=== PATIENT | female | born 2000 | race Caucasian/White ===

== ENCOUNTER 2020-06-14 14:35 | Outpatient (CLI) | payer OTHER ==
--- NOTE | 2020-06-14 15:41 | MRI ---
MRI OF THE RIGHT KNEE WITHOUT CONTRAST: 06/14/20 INDICATION: 20-year-old female with internal derangement of the right knee. Right knee pain since hurting the kne e in practice on Wednesday. COMPARISON: None. FINDINGS: No joint capsular distention or popliteal cyst is evident. The ACL, PCL, MCL and LCLC are intact. The extensor mechanism is intact. The medial and lateral menisci are intact. The articular cartilage of the femorotibial compartment is intact. The articular cartilage of the pa tellofemoral compartment is intact. IT band and popliteus appear within normal limits. IMPRESSION: No definite acute abnormality demonstrated. POS: [facility]
== END 2020-06-14 14:36 | disposition home or self-care (01) ==
LOC: BICMRI 14:35
PROVIDERS: ATTEND Orthopaedic Surgery
DX: M23.91 Unspecified internal derangement of right knee (principal)